=== PATIENT | male | born 1965 | race Two or more races ===

== ENCOUNTER 2018-10-10 20:28 | Emergency (ER) | payer OTHER ==
[~2018-10-10] VITALS: Ht 177.8 cm; Wt 95.3 kg
[2018-10-11] MEDS ORDERED: PEPCID40 MG PO (04:26)
[2018-10-11] MEDS ORDERED: INTESTINEX680 M1 PO (04:26)
[2018-10-11] MEDS ORDERED: ZOFRAN8 MG PO (04:26)
== END 2018-10-11 04:43 | disposition home or self-care (01) ==
LOC: ER 20:28
DX: K52.9 Noninfective gastroenteritis and colitis, unspecified (principal)

== ENCOUNTER 2020-11-28 17:07 | Emergency (ER) | payer OTHER ==
[~2020-11-28] VITALS: Ht 177.8 cm; Wt 95.3 kg
[~2020-11-28 17:07] MED LIST: INTESTINEX680 M1 PO; PEPCID40 MG PO; ZOFRAN8 MG PO
[2020-11-28] MEDS ORDERED: [UNRECOGNIZED DRUG - REMARK] (17:19)
== END 2020-11-28 18:29 | disposition home or self-care (01) ==
LOC: ER 17:07
DX: S61.210A Laceration without foreign body of right index finger without damage to nail, initial encounter (principal)